=== PATIENT | male | born 1950 | race Caucasian/White ===

== ENCOUNTER 2017-12-25 22:21 | Emergency (ER) | payer OTHER, MEDICAID ==
[~2017-12-25 22:21] MED LIST: ASPI325T PO; CLON-352 PO; HCTZ25 PO; LISI-366 PO; LOTRCRE TOP; METO50TA PO
[2017-12-25] MEDS ORDERED: SODIUM CHLOR 0.9% 1000 ML INJ 1,000 ML IV ONE ×2 (22:30)
[2017-12-25 22:32] VITALS: BP 135/76; PULSE 105; RESP 18; O2SAT 94
--- NOTE | 2017-12-25 22:42 | PD ---
HPI Chief Complaint: Alcohol/Drug Intoxication Time Seen by Provider: 22:26 Travel History International Travel<30 days: No Contact w/Intl Traveler<30days: No Traveled to known affect area: No History of Present Illness HPI Patient is a 67-year-old male presenting to the emergency department under a Giles act due to public intoxication. Patient was witnessed staggering and falling down. Patient states that he has had several glasses of Zinfandel at the [employer] prior to arrival in the emergency department. He states he works there, he got off work and began to drink. Officer that brought patient to emergency department witnessed patient falling and hitting his head. There is no loss of consciousness. Patient denies any pain at this time. Symptom onset was gradual, symptoms are exacerbated by alcohol intoxication. Patient has no suicidal ideations. PFSH Past Medical History Cancer: No Cardiovascular Problems: Yes Cerebrovascular Accident: Yes (07/05) Diminished Hearing: No Endocrine: No Genitourinary: No Hypertension: Yes Musculoskeletal: Yes Neurologic: No Psychiatric: No Reproductive: No Respiratory: No Social History Alcohol Use: Yes (DAILY) Tobacco Use: Yes (QUIT 2 YRS AGO) Substance Use: No Allergies-Medications (Allergen,Severity, Reaction): Coded Allergies: No Known Allergies (Unverified , 11/20/14) Reported Meds & Prescriptions Reported Meds & Active Scripts Active Lotrisone (Betamethasone/Clotrimazole) Cre 1 Applic TOP BID APPLY TO: Clonidine Hcl (Clonidine HCl) 0.1 Mg Tab 0.1 Mg PO TID Lisinopril 40 mg (Lisinopril) 40 Mg Tab 40 Mg PO DAILY Metoprolol Tartrate 50 mg (Metoprolol Tartrate) 50 Mg Tab 50 Mg PO BID Hydrodiuril (Hydrochlorothiazide) 25 Mg Tab 25 Mg PO DAILY Reported Aspirin 325 Mg Tab (Aspirin) 325 Mg Tab 325 Mg PO DAILY Review of Systems ROS Limitations: Intoxication Except as stated in HPI: all other systems reviewed are Neg Eyes: No: Blurred Vision HENT: No: Headaches Cardiovascular: No: Chest Pain or Discomfort Respiratory: No: Shortness of Breath Gastrointestinal: No: Abdominal Pain Musculoskeletal: No: Myalgias Physical Exam Narrative GENERAL: Well-developed, well-nourished, SKIN: Warm and dry. Abrasions to right forearm. HEAD: Atraumatic. Normocephalic. EYES: Pupils equal and round. No scleral icterus. No injection or drainage. ENT: No nasal bleeding or discharge. Mucous membranes pink and moist. NECK: Trachea midline. No JVD. CARDIOVASCULAR: Tachycardic RESPIRATORY: No accessory muscle use. Clear to auscultation. Breath sounds equal bilaterally. GASTROINTESTINAL: Abdomen soft, non-tender, nondistended. Hepatic and splenic margins not palpable. MUSCULOSKELETAL: Extremities without clubbing, cyanosis, or edema. No obvious deformities. NEUROLOGICAL: Awake and alert. No obvious cranial nerve deficits. Motor grossly within normal limits. Five out of 5 muscle strength in the arms and legs. Normal speech. PSYCHIATRIC: Appropriate mood and affect; insight and judgment normal. Data Data Last Documented VS Vital Signs Date Time Temp Pulse Resp B/P (MAP) Pulse Ox O2 Delivery O2 Flow Rate FiO2 12/25/17 22:32 105 18 135/76 (95) [address] Brain W/O Iv Contrast(Rout) (12/25/17 ) Iv Access Insert/Monitor (12/25/17 22:29) Alcohol (Ethanol) (12/25/17 22:29) Sodium Chlor 0.9% 1000 Ml Inj (Ns 1000 M (12/25/17 22:30) Sodium Chlor 0.9% 1000 Ml Inj (Ns 1000 M (12/25/17 22:30) Labs Laboratory Tests Test 12/25/17 22:45 Ethyl Alcohol Level 248 MG/DL MDM Medical Decision Making Medical Screen Exam Complete: Yes Emergency Medical Condition: Yes Interpretation(s) Vital Signs Date Time Temp Pulse Resp B/P (MAP) Pulse Ox O2 Delivery O2 Flow Rate FiO2 12/25/17 22:32 105 18 135/76 (95) 94 Differential Diagnosis Intoxication versus contusion versus hemorrhage versus metabolic abnormality versus other Narrative Course Patient is well-appearing 67-year-old male, clearly intoxicated. His vital signs are stable although he is mildly tachycardic with a heart rate of 105. Will obtain a CT scan of the brain due to patient's fall. Alcohol level ordered. IV fluids ordered. Patient is resting comfortably. CT scan of the brain is negative for acute findings. Blood alcohol level is 248. Patient will be kept in the emergency department until he is clinically sober, can demonstrate safe ambulation and sound decision-making skills. Diagnosis Primary Impression: Acute alcohol intoxication Qualified Codes: F10.929 - Alcohol use, unspecified with intoxication, unspecified Referrals: Primary Care Physician Patient Instructions: Alcohol Intoxication (ED), General Instructions Additional Instructions: Avoid excessive intake of alcohol Follow-up with your primary Return to emergency department for any new or worsening symptoms Med/Other Pt SpecificInfo: No Change to Meds Disposition: 01 DISCHARGE HOME Condition: Stable Jerri Watson December 25, 2017 22:42
--- NOTE | 2017-12-26 01:21 | RADRPT ---
EXAM DATE/TIME: 12/25/2017 22:59 [facility] COMPARISON: CT BRAIN W/O CONTRAST, May 13, 2014, 19:46. INDICATIONS : Altered mental status. RADIATION DOSE: 38.13 CTDIvol (mGy) MEDICAL HISTORY : Cardiovascular disease. Cardiovascular disease Hypertension. SURGICAL HISTORY : None. ENCOUNTER: Initial ACUITY: 1 day PAIN SCALE: 0/10 LOCATION: cranial TECHNIQUE: Multiple contiguous axial images were obtained of the head. Using automated exposure control and adj ustment of the mA and/or kV according to patient size, radiation dose was kept as low as reasonably a chievable to obtain optimal diagnostic quality images. DICOM format image data is available electro nically for review and comparison. FINDINGS: There is stable encephalomalacia in the right mid to high convexity parietal region, in the left lent iform nucleus and in the cerebellar hemispheres bilaterally, right worse than left. The ventricles ar e stable and minimally asymmetric. There is no evidence of intracranial mass or hemorrhage. There is nothing to suggest acute infarction. The extracranial structures are benign in appearance. CONCLUSION: Stable brain appearance. No acute findings. Sam Middleton MD on December 26, 2017 at 1:17 Board Certified Radiologist. This report was verified electronically.
== END 2017-12-26 04:50 | disposition home or self-care (01) ==
LOC: NEPD 22:21
DX: F10.129 Alcohol abuse with intoxication, unspecified (principal); R00.0 Tachycardia, unspecified; I10 Essential (primary) hypertension; Z87.891 Personal history of nicotine dependence; Z79.82 Long term (current) use of aspirin; Z86.73 Personal history of transient ischemic attack (TIA), and cerebral infarction without residual deficits; Z79.899 Other long term (current) drug therapy
CPT/HCPCS: 70450; 80307; 96360; 99283; J7030